=== PATIENT | female | born 1950 | race Hispanic/Latino ===

== ENCOUNTER → 2019-11-13 | Outpatient (CLI) | payer OTHER | END | disposition home or self-care (01) | LOC: RAH 09:24 | PROVIDERS: ATTEND Internal Medicine | DX: M47.814 Spondylosis without myelopathy or radiculopathy, thoracic region (principal); M47.812 Spondylosis without myelopathy or radiculopathy, cervical region; I70.0 Atherosclerosis of aorta; M54.9 Dorsalgia, unspecified; K29.70 Gastritis, unspecified, without bleeding ==

== ENCOUNTER → 2020-01-11 | Outpatient (CLI) | payer OTHER | END | disposition home or self-care (01) | LOC: RAH 15:10 | PROVIDERS: ATTEND Internal Medicine | DX: M17.0 Bilateral primary osteoarthritis of knee (principal); M81.0 Age-related osteoporosis without current pathological fracture | CPT/HCPCS: 73562 ==

== ENCOUNTER → 2020-12-31 | Outpatient (CLI) | payer MEDICARE, OTHER | END | disposition home or self-care (01) | LOC: RAH 08:19 | PROVIDERS: ATTEND Internal Medicine | DX: K59.09 Other constipation (principal) | CPT/HCPCS: 74018 ==

== ENCOUNTER → 2021-08-05 | Outpatient (CLI) | payer OTHER | END | disposition home or self-care (01) | LOC: OIH 09:32 | PROVIDERS: ATTEND Internal Medicine Cardiovascular Disease | DX: Z13.6 Encounter for screening for cardiovascular disorders (principal); I25.10 Atherosclerotic heart disease of native coronary artery without angina pectoris; I51.5 Myocardial degeneration | CPT/HCPCS: 75571 ==

== ENCOUNTER → 2021-09-09 | Outpatient (CLI) | payer MEDICARE ==
[~2021-09-09] VITALS: Ht 167.6 cm; Wt 76.2 kg
[~2021-09-09] MED LIST: REGADENOSON 0.4 MG/5 ML PF SYG IVP SCH
== END ==
LOC: SHCH 09:05
PROVIDERS: ATTEND Internal Medicine Cardiovascular Disease
DX: R07.9 Chest pain, unspecified (principal); I10 Essential (primary) hypertension
CPT/HCPCS: 78452; 93017; 96374; A9500 ×2; J2785